=== PATIENT | female | born 1995 ===

== ENCOUNTER 2024-06-23 11:00 | Outpatient (REF) | payer MEDICAID, SELFPAY ==
--- NOTE | 2024-06-23 10:00 | PAPFT_PTH ---
PATIENT: Selena Holloway LOC: [facility] U#:[id number] AGE/SX: 29/F ROOM: RE06/23/[address]: Emperatriz Brown : 1995 BED: DIS: 06/23/2024 SPEC #: [id number] RECD: 06/23/24 17:59 STATUS: EMILE REQ #: [id number] MASSIMO: 06/23/24 10:[address]: Emperatriz Brown DEPT: [facility], [facility] Cytology RECD BY: Gunjan Singh ENTERED: 06/23/24 18:00 SP TYPE: PAPFT OT DR: Unknown,Unknown Tissues: 1 - CX/ENDOCX FOR PAP SMEARS Procedures: PAP THIN PREP/[facility] Screening HPV DNA PROBE Comments: [id number] (HPV 16 & 18/45)
[2024-06-24 11:50] LABS: Chlamydia Result Negative (Negative); GC Result Negative (Negative)
[2024-06-24 14:36] LABS: Bacterial Vaginosis (BV) Negative (Negative); Candida glabrata Negative (Negative); Candida species group Positive (Negative); Trichomonas vaginalis Negative (Negative)
== END 2024-06-23 11:01 | disposition home or self-care (01) ==
LOC: NCHCN 11:00
PROVIDERS: Visit Provider Family Medicine
DX: Z11.51 Encounter for screening for human papillomavirus (HPV) (principal); Z01.419 Encounter for gynecological examination (general) (routine) without abnormal findings; Z11.3 Encounter for screening for infections with a predominantly sexual mode of transmission; L29.3 Anogenital pruritus, unspecified
CPT/HCPCS: 81513; 87481; 87491; 87591; 87661; 88142; 87624